=== PATIENT | female | born 1970 ===

== ENCOUNTER 2021-11-15 17:02 | Outpatient (CLI) | payer OTHER | END 2021-11-15 23:59 | disposition home or self-care (01) | LOC: LAB SPEC 17:02 | PROVIDERS: ATTEND Podiatrist Foot & Ankle Surgery | DX: Z01.812 Encounter for preprocedural laboratory examination (principal); N39.0 Urinary tract infection, site not specified; E55.9 Vitamin D deficiency, unspecified | CPT/HCPCS: 87088 ==